=== PATIENT | female | born 1980 | race Caucasian/White ===

== ENCOUNTER 2016-07-03 11:58 | Emergency (ER) | payer BC ==
[2016-07-03] MEDS ORDERED: Ondansetron 4 MG/2 ML SDV IVPUSH ONE (12:42)
[2016-07-03] MEDS ORDERED: Sodium Chloride 0.9% 1,000 ML IV ONE (12:42)
[2016-07-03] MEDS ORDERED: Ketorolac 30 MG/ML SDV IVPUSH ONE (12:57)
--- NOTE | 2016-07-03 13:01 | EDM.PDOC ---
ED HPI GENERAL MEDICAL PROBLEM - General Time Seen by Provider: 07/03/16 12:50 Source of Information: Reports: Patient History Limitations: Reports: No Limitations abd pain right Pain Score (Numeric/FACES): 0 - Related Data Allergies Allergy/AdvReac Type Severity Reaction Status Date / Time amoxicillin [Amoxicillin] Allergy Rash Verified 07/03/16 12:09 gabapentin [From Neurontin] Allergy Cannot Verified 07/03/16 12:09 Remember iv contrast Allergy Hives Uncoded 07/03/16 12:09 iv dye Allergy Hives Uncoded 07/03/16 12:09 Home Meds: Home Meds Multivitamins 1 cap PO DAILY 03/11/14 [History] Ciprofloxacin [Ciprofloxacin HCl] 500 mg PO BID #20 tablet 07/03/16 [Rx] Ondansetron [Zofran ODT] 4 mg SL Q4H PRN #16 tab.dis 07/03/16 [Rx] metroNIDAZOLE [Flagyl] 500 mg PO Q12H #20 tablet 07/03/16 [Rx] Past Medical History - Past Health History Medical/Surgical History: Denies Medical/Surgical History - Past Surgical History Female Surgical History: Reports: Section Musculoskeletal Surgical History: Reports: Other (See Below) Other Musculoskeletal Surgeries/Procedures:: lumbar disc. rib removal on the left side Social & Family History - Family History Family Medical History: Noncontributory - Tobacco Use Smoking Status *Q: Never Smoker Second Hand Smoke Exposure: No - Alcohol Use Days Per Week of Alcohol Use: 0 Number of Drinks Per Day: 0 Total Drinks Per Week: 0 - Recreational Drug Use Recreational Drug Use: No Drug Use in Last 12 Months: No ED ROS GENERAL - Review of Systems Review Of Systems: See Below (History of present illness) ED EXAM, GI/ABD - Physical Exam Exam: See Below (History of present illness) Course - Vital Signs Last Recorded V/S: Last Vital Signs Temp 37.1 C 07/03/16 15:42 Pulse 68 07/03/16 16:00 Resp 16 07/03/16 16:00 BP 125/76 07/03/16 16:00 Pulse Ox 99 07/03/16 16:00 - Orders/Labs/Meds Labs: Laboratory Tests 07/03/16 07/03/16 07/03/16 Range/Units 12:54 12:54 12:54 WBC 12.28 H (4.0-11.0) K/uL RBC 4.75 (4.30-5.90) M/uL Hgb 14.6 (12.0-16.0) g/dL Hct 43.0 (36.0-46.0) % MCV 90.5 (80.0-98.0) fL MCH 30.7 (27.0-32.0) pg MCHC 34.0 (31.0-37.0) g/dL RDW Std Deviation 42.2 (28.0-62.0) fl RDW Coeff of [place]par[place] 13 (11.0-15.0) % Plt Count 303 (150-400) K/uL MPV 10.40 (7.40-12.00) fL Neut % (Auto) 51.7 (48.0-80.0) % Lymph % (Auto) 38.8 (16.0-40.0) % [place] % (Auto) 7.0 (0.0-15.0) % Eos % (Auto) 1.9 (0.0-7.0) % Baso % (Auto) 0.6 (0.0-1.5) % Neut # (Auto) 6.4 H (1.4-5.7) K/uL Lymph # (Auto) 4.8 H (0.6-2.4) K/uL [place] # (Auto) 0.9 H (0.0-0.8) K/uL Eos # (Auto) 0.2 (0.0-0.7) K/uL Baso # (Auto) 0.1 (0.0-0.1) K/uL Nucleated RBC % 0.0 /100WBC Nucleated RBCs # 0 K/uL Sodium 142 (136-146) mmol/L Potassium 3.8 (3.5-5.1) mmol/L Chloride 111 H (98-110) mmol/L Carbon Dioxide 19 L (21-31) mmol/L BUN 15 (6.0-23.0) mg/dL Creatinine 0.7 (0.6-1.5) mg/dL Est Cr Clr Drug Dosing 103.01 mL/min Estimated GFR (MDRD) > 60.0 ml/min Glucose 94 (60-110) mg/dL Calcium 9.5 (8.8-10.8) mg/dL Total Bilirubin 0.4 (0.1-1.5) mg/dL AST 16 (5-40) IU/L ALT 16 (8-54) IU/L Alkaline Phosphatase 60 (40-150) Total Protein 7.1 (6.0-8.0) g/dL Albumin 4.2 (3.5-5.0) g/dL Globulin 2.9 (2.0-3.5) g/dL Albumin/Globulin Ratio 1.4 (1.3-2.8) Lipase 26 (7-80) U/L Urine Color Urine Appearance Urine pH (5.0-8.0) Ur Specific [place] (1.001-1.035) Urine Protein (NEGATIVE) mg/dL Urine Glucose (UA) (NEGATIVE) mg/dL Urine Ketones (NEGATIVE) mg/dL Urine Occult Blood (NEGATIVE) Urine Nitrite (NEGATIVE) Urine Bilirubin (NEGATIVE) Urine Urobilinogen (<2.0) EU/dL Ur Leukocyte Esterase (NEGATIVE) Urine RBC (0-2/HPF) Urine WBC (0-5/HPF) Ur Epithelial Cells (NONE-FEW) Urine Bacteria (NEGATIVE) 07/03/16 Range/Units 14:01 WBC (4.0-11.0) K/uL RBC (4.30-5.90) M/uL Hgb (12.0-16.0) g/dL Hct (36.0-46.0) % MCV (80.0-98.0) fL MCH (27.0-32.0) pg MCHC (31.0-37.0) g/dL RDW Std Deviation (28.0-62.0) fl RDW Coeff of [place]par[place] (11.0-15.0) % Plt Count (150-400) K/uL MPV (7.40-12.00) fL Neut % (Auto) (48.0-80.0) % Lymph % (Auto) (16.0-40.0) % [place] % (Auto) (0.0-15.0) % Eos % (Auto) (0.0-7.0) % Baso % (Auto) (0.0-1.5) % Neut # (Auto) (1.4-5.7) K/uL Lymph # (Auto) (0.6-2.4) K/uL [place] # (Auto) (0.0-0.8) K/uL Eos # (Auto) (0.0-0.7) K/uL Baso # (Auto) (0.0-0.1) K/uL Nucleated RBC % /100WBC Nucleated RBCs # K/uL Sodium (136-146) mmol/L Potassium (3.5-5.1) mmol/L Chloride (98-110) mmol/L Carbon Dioxide (21-31) mmol/L BUN (6.0-23.0) mg/dL Creatinine (0.6-1.5) mg/dL Est Cr Clr Drug Dosing mL/min Estimated GFR (MDRD) ml/min Glucose (60-110) mg/dL Calcium (8.8-10.8) mg/dL Total Bilirubin (0.1-1.5) mg/dL AST (5-40) IU/L ALT (8-54) IU/L Alkaline Phosphatase (40-150) Total Protein (6.0-8.0) g/dL Albumin (3.5-5.0) g/dL Globulin (2.0-3.5) g/dL Albumin/Globulin Ratio (1.3-2.8) Lipase (7-80) U/L Urine Color YELLOW Urine Appearance CLEAR Urine pH 6.0 (5.0-8.0) Ur Specific [place] 1.020 (1.001-1.035) Urine Protein NEGATIVE (NEGATIVE) mg/dL Urine Glucose (UA) NEGATIVE (NEGATIVE) mg/dL Urine Ketones NEGATIVE (NEGATIVE) mg/dL Urine Occult Blood NEGATIVE (NEGATIVE) Urine Nitrite NEGATIVE (NEGATIVE) Urine Bilirubin NEGATIVE (NEGATIVE) Urine Urobilinogen 0.2 (<2.0) EU/dL Ur Leukocyte Esterase NEGATIVE (NEGATIVE) Urine RBC 0-2 (0-2/HPF) Urine WBC 1-3 (0-5/HPF) Ur Epithelial Cells MODERATE (NONE-FEW) Urine Bacteria FEW (NEGATIVE) Meds: Medications Discontinued Medications Generic Name Dose Route Start Last Admin Trade Name Freq PRN Reason Stop Dose Admin Sodium Chloride 1,000 mls @ 999 mls/hr 07/03/16 12:42 07/03/16 13:05 Normal Saline IV 07/03/16 13:42 999 mls/hr .Bolus ONE Administration Iopamidol 100 ml 05/01/17 13:31 07/03/16 13:32 Isovue Multipack-370 (76%) IVPUSH 07/03/16 13:32 100 ml ONETIME STA Administration Ketorolac Tromethamine 30 mg 07/03/16 12:57 07/03/16 13:06 Toradol IVPUSH 07/03/16 12:58 30 mg ONETIME ONE Administration Ondansetron HCl 4 mg 07/03/16 12:42 07/03/16 13:07 Zofran IVPUSH 07/03/16 12:43 4 mg ONETIME ONE Administration Departure - Departure Time of Disposition: 15:45 Disposition: Home, Self-Care 01 Clinical Impression: Nonspecific colitis, Diarrhea - Discharge Information Prescriptions: Ciprofloxacin [Ciprofloxacin HCl] 500 mg PO BID #20 tablet Ondansetron [Zofran ODT] 4 mg SL Q4H PRN #16 tab.dis PRN Reason: Nausea metroNIDAZOLE [Flagyl] 500 mg PO Q12H #20 tablet Instructions: Colitis Referrals: April Montanez MD [Primary Care Provider] - Forms: ED Department Discharge Additional Instructions: Your history and findings today are consistent with nonspecific colitis. This means inflammation of your large bowel. The appendix was visualized on the CAT scan and it was normal. You have no signs of a surgical emergency today. As we discussed we've given you a prescription for antibiotics to cover for the possibility of a bacterial cause for your bowel inflammation. As you're aware it is possible that it could be just an inflammatory process alone or as a result of a viral infection. Initially a box as prescribed. Followup with your DrJesus for reevaluation and referral to a oil analyst for further workup and treatment as needed. Return immediately for new severe or worsening symptoms ED HPI GI/ABDOMINAL - General Chief Complaint: Gastrointestinal Problem Stated Complaint: VOMITTING Time Seen by Provider: 07/03/16 12:51 Source of Information: Reports: Patient History Limitations: Reports: No Limitations - History of Present Illness INITIAL COMMENTS - FREE TEXT/NARRATIVE: HISTORY AND PHYSICAL: History of present illness: [36-year-old female complaining of intermittent crampy abdominal pain, nausea vomiting diarrhea associated with mild intermittent fevers on and off for 3 days. Patient reports she gets the symptoms typically after eating. No prior history of chronic abdominal problems] Review of systems: As per history of present illness and below otherwise all systems reviewed and negative. Past medical history: As per history of present illness and as reviewed below otherwise noncontributory. Surgical history: As per history of present illness and as reviewed below otherwise noncontributory. Social history: No reported history of drug or alcohol abuse. Family history: As per history of present illness and as reviewed below otherwise noncontributory. Physical exam: HEENT: Atraumatic, normocephalic, pupils reactive, negative for conjunctival pallor or scleral icterus, mucous membranes moist, throat clear, neck supple, nontender, trachea midline. Lungs: Clear to auscultation, breath sounds equal bilaterally, chest nontender. Heart: S1S2, regular, negative for clicks, rubs, or JVD. Abdomen: Soft, nondistended, nontender. Negative for masses or hepatosplenomegaly. Negative for costovertebral tenderness. Pelvis: Stable nontender. Genitourinary: Deferred. Rectal: Deferred. Extremities: Atraumatic, negative for cords or calf pain. Neurovascular unremarkable. Neuro: Awake, alert, oriented. Cranial nerves II through XII unremarkable. Cerebellum unremarkable. Motor and sensory unremarkable throughout. Exam nonfocal. Diagnostics: [] Therapeutics: [] Impression: [] Plan: [Findings consistent with nonspecific colitis and diarrhea. Patient well- hydrated and well-appearing on reevaluation prior to discharge. No further workup or treatment indicated at this time. Vital signs stable. Advice given to cover possibility of bacterial etiology and patient agrees with outpatient follow-up with PCP. Strict return precautions given] Definitive disposition and diagnosis as appropriate pending reevaluation and review of above. - Related Data Allergies/ADRs: Allergies Allergy/AdvReac Type Severity Reaction Status Date / Time amoxicillin [Amoxicillin] Allergy Rash Verified 07/03/16 12:09 gabapentin [From Neurontin] Allergy Cannot Verified 07/03/16 12:09 Remember iv contrast Allergy Hives Uncoded 07/03/16 12:09 iv dye Allergy Hives Uncoded 07/03/16 12:09 Home Meds: Home Meds Multivitamins 1 cap PO DAILY 03/11/14 [History] Ciprofloxacin [Ciprofloxacin HCl] 500 mg PO BID #20 tablet 07/03/16 [Rx] Ondansetron [Zofran ODT] 4 mg SL Q4H PRN #16 tab.dis 07/03/16 [Rx] metroNIDAZOLE [Flagyl] 500 mg PO Q12H #20 tablet 07/03/16 [Rx] Departure - Departure Time of Disposition: 15:45 Disposition: Home, Self-Care 01 Condition: Good Clinical Impression: Nonspecific colitis, Diarrhea Prescriptions: Ciprofloxacin [Ciprofloxacin HCl] 500 mg PO BID #20 tablet Ondansetron [Zofran ODT] 4 mg SL Q4H PRN #16 tab.dis PRN Reason: Nausea metroNIDAZOLE [Flagyl] 500 mg PO Q12H #20 tablet Instructions: Colitis Referrals: April Montanez MD [Primary Care Provider] - Forms: ED Department Discharge Additional Instructions: Your history and findings today are consistent with nonspecific colitis. This means inflammation of your large bowel. The appendix was visualized on the CAT scan and it was normal. You have no signs of a surgical emergency today. As we discussed we've given you a prescription for antibiotics to cover for the possibility of a bacterial cause for your bowel inflammation. As you're aware it is possible that it could be just an inflammatory process alone or as a result of a viral infection. Initially a box as prescribed. Followup with your DrJesus for reevaluation and referral to a oil analyst for further workup and treatment as needed. Return immediately for new severe or worsening symptoms
[2016-07-03 13:23] LABS: CHLORIDE,CL 111 mmol/L (98-110); SODIUM,NA 142 mmol/L (136-146)
[2016-07-03] MEDS ORDERED: Iopamidol 755 MG/ML 500 ML Multipack Bottle IVPUSH STA (13:31)
--- NOTE | 2016-07-03 14:23 | CT ---
CT of the abdomen and pelvis without contrast. HISTORY: Pain TECHNIQUE: Axial CT images were obtained of the abdomen and pelvis without contrast. Coronal and sag ittal reconstructions obtained. FINDINGS: The lung bases are clear, no pleural effusion. The liver, spleen, adrenal glands, and pancreas appear unremarkable for noncontrast examination. Cho lecystectomy. There is no bulky retroperitoneal lymphadenopathy. No abdominal ascites. There is a 1 mm nonobstructing stone within the lower pole of the right kidney. No evidence of obstr uctive uropathy bilaterally. The large and small bowel are normal in caliber without evidence of obstruction. There is mild wall thickening within the proximal transverse colon and proximal descending colon, however not optimally distended. There is however possibly a trace adjacent stranding. The appendix appears normal. There is no bulky pelvic lymphadenopathy. No free fluid. No free air. The urinary bladder appears normal. The visualized osseous structures appear normal. Disc spaces narrowing and early degenerative change s noted at L5-S1. IMPRESSION: 1. Subtle areas of possible mild colon wall thickening with borderline stranding within the right lo wer quadrant. This could represent an infectious versus inflammatory colitis. No evidence of a bowel obstruction. 2. Nonobstructing right nephrolithiasis.
[2016-07-03 18:57] VITALS: BP 125/76
== END 2016-07-03 16:01 | disposition home or self-care (01) ==
LOC: MW.ED 11:58
DX: K52.9 Noninfective gastroenteritis and colitis, unspecified (principal); Z91.041 Radiographic dye allergy status; Z88.8 Allergy status to other drugs, medicaments and biological substances; Z79.899 Other long term (current) drug therapy
CPT/HCPCS: 36415; 74176; 80053; 81001; 83690; 85025; J1885; J2405; J7040; Q9967; 96361; 96374; 96375; 99283; 99284-25

== ENCOUNTER 2021-06-29 07:09 | Emergency (ER) | payer OTHER ==
[2021-06-29] MEDS ORDERED: Ketorolac 30 MG/ML SDV IVPUSH ONE (07:22)
[2021-06-29] MEDS ORDERED: Ondansetron 4 MG/2 ML SDV IVPUSH ONE ×2 (07:22→10:20)
[2021-06-29] MEDS ORDERED: Sodium Chloride 0.9% 2.5 ML Syringe FLUSH PRN (07:22)
[2021-06-29] MEDS ORDERED: Sodium Chloride 0.9% 10 ML Syringe FLUSH PRN (07:22)
[2021-06-29] MEDS ORDERED: fentaNYL 50 MCG/ML SDV IVPUSH ONE ×2 (07:22→10:20)
[2021-06-29] MEDS ORDERED: Sodium Chloride 0.9% 1,000 ML IV ONE (07:47)
[2021-06-29 07:56] LABS: BLOOD UREA NITROGEN,BUN 17 mg/dL (7.0-18.0); CARBON DIOXIDE,CO2 17.8 mmol/L (21.0-32.0); CHLORIDE,CL 102 mmol/L (98-107); GLUCOSE RANDOM 205 mg/dL (74-106); POTASSIUM,K 3.5 mmol/L (3.5-5.1); SODIUM,NA 137 mmol/L (136-145)
[2021-06-29 09:23] VITALS: BP 111/61; PULSE 74
== END 2021-06-29 10:08 ==
LOC: MW.ED 07:09
DX: T59.7X1A Toxic effect of carbon dioxide, accidental (unintentional), initial encounter (principal); R55 Syncope and collapse; Z88.0 Allergy status to penicillin; Z91.041 Radiographic dye allergy status; Z88.5 Allergy status to narcotic agent
CPT/HCPCS: 36415; 36600; 70450; 71045; 80053; 80307; 82375; 82803; 83735; 84484; 84703; 85025; 93005; 96374; 96375; 96376; 99285; J1885; J2405; J3010; J3490; J7030; 93010; 99291

== ENCOUNTER 2022-06-04 20:19 | Emergency (ER) | payer OTHER ==
[2022-06-04] MEDS ORDERED: Metoclopramide 10 MG/2 ML SDV IVPUSH ONE (20:33)
[2022-06-04] MEDS ORDERED: diphenhydrAMINE 50 MG/ML SDV IVPUSH ONE (20:33)
[2022-06-04] MEDS ORDERED: Ketorolac 30 MG/ML SDV IVPUSH ONE (20:33)
[2022-06-04] MEDS ORDERED: Sodium Chloride 0.9% 1,000 ML IV ONE (20:33)
[2022-06-04] MEDS ORDERED: Acetaminophen/Butalbital/Caffeine 325-50-40 MG Tab PO ONE (20:34)
[2022-06-04 21:40] LABS: CARBON DIOXIDE,CO2 26.1 mmol/L (21.0-32.0); POTASSIUM,K 3.5 mmol/L (3.5-5.1)
[2022-06-04 22:38] VITALS: BP 115/67; PULSE 76
== END 2022-06-04 22:37 | disposition home or self-care (01) ==
LOC: MW.ED 20:19
DX: G43.909 Migraine, unspecified, not intractable, without status migrainosus (principal); Z88.0 Allergy status to penicillin; Z88.8 Allergy status to other drugs, medicaments and biological substances; Z91.041 Radiographic dye allergy status; Z79.899 Other long term (current) drug therapy; Z98.890 Other specified postprocedural states
CPT/HCPCS: 36415; 80053; 83735; 84703; 85025; 96361; 96374; 96375; 99283; A9270; J1200; J1885; J2765; J7030

== ENCOUNTER 2022-08-11 16:41 | Emergency (ER) | payer OTHER ==
[2022-08-11] MEDS ORDERED: Tetracaine HCl/PF 0.5% 4 ML Bottle EYERT ONE (16:53)
[2022-08-11] MEDS ORDERED: Acetaminophen 500 MG Tab PO ONE (16:53)
[2022-08-11 20:04] VITALS: BP 127/73; PULSE 91
[2022-08-11] MEDS ORDERED: diphenhydrAMINE 50 MG/ML SDV IVPUSH ONE (20:04)
[2022-08-11] MEDS ORDERED: Metoclopramide 10 MG/2 ML SDV IVPUSH ONE (20:04)
[2022-08-11] MEDS ORDERED: Metoclopramide 5 MG Tab PO ONE (20:08)
[2022-08-11] MEDS ORDERED: diphenhydrAMINE 50 MG Cap PO ONE (20:08)
== END 2022-08-11 20:32 | disposition home or self-care (01) ==
LOC: MW.ED 16:41
DX: S06.0X0A Concussion without loss of consciousness, initial encounter (principal); Z88.0 Allergy status to penicillin; Z88.8 Allergy status to other drugs, medicaments and biological substances; Z91.041 Radiographic dye allergy status; Y00.XXXA Assault by blunt object, initial encounter
CPT/HCPCS: 70450; 70486; 99284; A9270; J3490

== ENCOUNTER 2022-10-31 12:00 | Emergency (ER) | payer BC, OTHER ==
[2022-10-31] MEDS ORDERED: Sodium Chloride 0.9% 1,000 ML IV ONE (14:15)
[2022-10-31] MEDS ORDERED: fentaNYL 50 MCG/ML SDV IVPUSH ONE (14:15)
[2022-10-31] MEDS ORDERED: Ondansetron 4 MG/2 ML SDV IVPUSH ONE (14:17)
[2022-10-31 14:27] LABS: BASOPHILS ABSOLUTE AUTO 0.1 K/uL (0.0-0.1); BASOPHILS PERCENT AUTO 0.5 % (0.0-1.5); EOSINOPHILS PERCENT AUTO 0.4 % (0.0-7.0); HEMATOCRIT 42.2 % (36.0-46.0); HEMOGLOBIN 14.1 g/dL (12.0-16.0); LYMPHOCYTES PERCENT AUTO 18.1 % (16.0-40.0); MEAN CORPUSCULAR HEMOGLOBIN 30.4 pg (27.0-32.0); MEAN CORPUSCULAR HGB CONC 33.4 g/dL (31.0-37.0); MEAN CORPUSCULAR VOLUME 90.9 fL (80.0-98.0); MONOCYTES ABSOLUTE AUTO 0.6 K/uL (0.0-0.8); MONOCYTES PERCENT AUTO 5.3 % (0.0-15.0); NEUTROPHILS ABSOLUTE AUTO 8.1 K/uL (1.4-5.7); NEUTROPHILS PERCENT AUTO 75.7 % (48.0-80.0); NRBC ABSOLUTE 0 K/uL; PLATELET COUNT,PLT 321 K/uL (150-400); RED BLOOD CELL COUNT 4.64 M/uL (4.30-5.90); WHITE BLOOD CELL COUNT,WBC 10.75 K/uL (4.0-11.0)
[2022-10-31 15:14] LABS: ALBUMIN 3.8 g/dL (3.4-5.0); BILIRUBIN TOTAL 0.4 mg/dL (0.2-1.0); CALCIUM 8.9 mg/dL (8.5-10.1); CARBON DIOXIDE,CO2 25.7 mmol/L (21.0-32.0); CREATININE 0.6 mg/dL (0.6-1.0); EST CRCL DRUG DOSING (CG) 113.18 mL/min; POTASSIUM,K 4.1 mmol/L (3.5-5.1); PROTEIN TOTAL,TP 7.7 g/dL (6.4-8.2)
[2022-10-31 16:02] LABS: APPEARANCE,URINE CLEAR; BILIRUBIN,URINE NEGATIVE (NEGATIVE); COLOR,URINE YELLOW; GLUCOSE,URINE NEGATIVE (NEGATIVE); KETONES,URINE 15 mg/dL (NEGATIVE); LEUKOCYTE ESTERASE,URINE NEGATIVE (NEGATIVE); NITRITE,URINE NEGATIVE (NEGATIVE); OCCULT BLOOD,URINE TRACE-INTACT (NEGATIVE); PH,URINE 6.5 (5.0-8.0); PROTEIN,URINE NEGATIVE (NEGATIVE); UROBILINOGEN,URINE 0.2 EU/dL (<2.0)
[2022-10-31 16:50] LABS: BACTERIA,URINE NOT SEEN (NEGATIVE); EPITHELIAL CELLS,URINE FEW (NONE-FEW); RBC,URINE NONE SEEN (0-2/HPF); WBC,URINE NONE SEEN (0-5/HPF)
[2022-10-31] MEDS ORDERED: Ketorolac 30 MG/ML SDV IVPUSH ONE (17:02)
[2022-10-31] MEDS ORDERED: diphenhydrAMINE 50 MG/ML SDV IVPUSH ONE (17:03)
[2022-10-31 21:22] VITALS: BP 87/69; PULSE 79
== END 2022-10-31 21:21 | disposition home or self-care (01) ==
LOC: MW.ED 12:00
DX: R10.31 Right lower quadrant pain (principal); R11.0 Nausea; R50.9 Fever, unspecified; G43.909 Migraine, unspecified, not intractable, without status migrainosus; Z88.8 Allergy status to other drugs, medicaments and biological substances; Z91.041 Radiographic dye allergy status; Z88.0 Allergy status to penicillin
CPT/HCPCS: 36415; 74176; 76857; 80053; 81001; 85025; 96361; 96374; 96375; 99284; J1200; J1885; J2405; J3010; J7030